=== PATIENT | female | born 2000 | race Two or more races ===

== ENCOUNTER 2023-08-14 12:52 | Inpatient (IN) | payer OTHER ==
[~2023-08-14] VITALS: Ht 154.9 cm; Wt 99.8 kg
[2023-09-09] MEDS ORDERED: PRENATABS RX T1 EACH PO (09:56)
[2023-09-09] MEDS ORDERED: RINGERS SOLUTION,LACTATED 1,000 ML IV SCH (10:00)
[2023-09-09 10:30] LABS: HEMATOCRIT 31.6 % (36.0-45.00); MEAN CELL VOLUME 76.7 fL (80.00-100.00); MEAN CORPUSCULAR HGB CONC 32.6 g/dl (32.0-36.0); PLATELET COUNT 435 K/uL (150-450); RED BLOOD COUNT 4.11 M/uL (4.00-6.00); RED CELL DISTRIBUTION WIDTH 17.3 % (11.5-14.5)
[2023-09-09 10:31] LABS: HEMOGLOBIN 10.3 g/dL (12.0-15.00)
[2023-09-09 10:44] LABS: INR 0.94; PARTIAL THROMBOPLASTIN TIME 27.6 SECONDS (22.0-34.0); PROTHROMBIN TIME 9.9 SECONDS (9.0-11.5)
[2023-09-09] MEDS ORDERED: OXYTOCIN 20 UNITS/500ML RL PIGGYBAG IV ONE (10:57)
[2023-09-09] MEDS ORDERED: OXYTOCIN 500 ML IV ONE (11:00)
[2023-09-09 11:07] LABS: ALBUMIN 2.3 gm/dL (3.4-5.0); BILIRUBIN TOTAL 0.23 mg/dL (0.3-1.2); CREATININE SERUM 0.62 mg/dL (0.55-1.02); GFR 118.26; GLOBULINA 4.3 G/DL (2.4-3.5); POTASSIUM 4.66 mEq/L (3.5-5.1); TOTAL PROTEIN 6.6 gm/dL (6.4-8.2)
[2023-09-09] MEDS ORDERED: ERYTHROMYCIN BASE 1 GM TUBE OP ONE ×2 (12:48→15:45)
[2023-09-09] MEDS ORDERED: LIDOCAINE HCL 1% 200MG/20ML VIAL IJ ONE (12:48)
[2023-09-09] MEDS ORDERED: CHLORHEXIDINE GLUCONATE 120 ML BOTTLE TOP ONE ×2 (12:48→15:45)
[2023-09-09] MEDS ORDERED: OXYTOCIN 20 UNITS/1000ML RL PIGGYBAG IV ONE (12:49)
[2023-09-09] MEDS ORDERED: IBUprofen 400 MG TABLET PO PRN (15:00)
[2023-09-09] MEDS ORDERED: OxyCODONE HCL/APAP UD (PERCOCET) PO PRN (15:00)
[2023-09-09] MEDS ORDERED: OXYTOCIN 1,000 ML IV SCH (15:00)
[2023-09-09] MEDS ORDERED: LIDOCAINE HCL 100 MG/10ML VIAL IJ ONE (15:45)
== END 2023-09-11 12:58 | disposition home or self-care (01) | DRG 807 ==
LOC: OB/GYN 09-09 09:27 → LDR 09-09 09:27 → OB/GYN 09-09 15:47 → LDR 09-10 13:15 → OB/GYN 09-11 12:58
PROVIDERS: Obstetrics & Gynecology; ADMIT Obstetrics & Gynecology Maternal & Fetal Medicine; ATTEND Obstetrics & Gynecology Maternal & Fetal Medicine
PROC: 10E0XZZ Delivery of Products of Conception, External Approach (ICD-10-PCS; principal; 2023-09-09)
PROC: 0UQG7ZZ Repair Vagina, Via Natural or Artificial Opening (ICD-10-PCS; 2023-09-09)
PROC: 4A1HXCZ Monitoring of Products of Conception, Cardiac Rate, External Approach (ICD-10-PCS; 2023-09-09)
DX: O71.4 Obstetric high vaginal laceration alone (principal); Z37.0 Single live birth; Z3A.39 39 weeks gestation of pregnancy; Z20.822 Contact with and (suspected) exposure to COVID-19

== ENCOUNTER 2023-08-28 06:39 | Outpatient (CLI) | payer OTHER | END 2023-08-28 12:52 | disposition home or self-care (01) | LOC: OBS/DEL 06:39 | PROVIDERS: ATTEND Obstetrics & Gynecology | DX: O26.893 Other specified pregnancy related conditions, third trimester (principal); Z3A.38 38 weeks gestation of pregnancy ==

== ENCOUNTER 2023-09-04 07:29 | Outpatient (CLI) | payer OTHER | END 2023-09-04 08:24 | disposition home or self-care (01) | LOC: NST 07:29 | PROVIDERS: ATTEND Obstetrics & Gynecology Maternal & Fetal Medicine | DX: Z34.83 Encounter for supervision of other normal pregnancy, third trimester (principal) ==

== ENCOUNTER 2023-09-08 11:26 | Outpatient (CLI) | payer OTHER ==
[2023-09-09] MEDS ORDERED: PRENATABS RX T1 EACH PO (09:56)
== END 2023-09-08 12:18 | disposition home or self-care (01) ==
LOC: NST 11:26
PROVIDERS: ATTEND Obstetrics & Gynecology Maternal & Fetal Medicine
DX: Z34.83 Encounter for supervision of other normal pregnancy, third trimester (principal)